=== PATIENT | female | born 1965 | race Caucasian/White ===

== ENCOUNTER 2024-06-03 14:58 | Emergency (ER) | payer BC ==
[2024-06-03 15:06] VITALS: BP 146/93; PULSE 88; RESP 20; TEMP 98
--- NOTE | 2024-06-03 15:17 | ED ---
General Adult HPI - General Chief complaint: Recheck/Abnormal Lab/Rx Stated complaint: Facial weakness Time Seen by Provider: 06/03/24 15:04 Source: patient, RN notes reviewed Mode of arrival: ambulatory Limitations: no limitations - History of Present Illness Initial comments: Patient is a pleasant 59-year-old female present to the emergency department with facial weakness. Onset of symptoms was a few hours ago. Patient has weakness on the left side of her face. Patient has had some mild congestion recently. Patient did have a moderate headache earlier however that has resolved. Headache was not sudden onset and was not severe. Patient does have history of similar headaches previously. Patient also has history of previous Hector's palsy. No earache - Related Data Previous Rx's Medication Instructions Recorded predniSONE [Deltasone] 60 mg PO DAILY #18 tab 06/03/24 valACYclovir HCL [Valtrex] 1 tab PO TID #21 tablet 06/03/24 Allergies Allergy/AdvReac Type Severity Reaction Status Date / Time Iodinated Contrast Media Allergy Rash/Hives Verified 06/03/24 15:06 latex AdvReac Rash/Hives Verified 06/03/24 15:06 Review of Systems ROS Statement: Those systems with pertinent positive or pertinent negative responses have been documented in the HPI. ROS Other: All systems not noted in ROS Statement are negative. Constitutional: Denies: fever Eyes: Denies: eye pain ENT: Denies: ear pain, throat pain Respiratory: Denies: cough Cardiovascular: Denies: chest pain Neurological: Reports: as per HPI. Denies: confusion Past Medical History Past Medical History: Thyroid Disorder Additional [facility] History of Any Multi-Drug Resistant Organisms: None Reported Past Surgical History: Appendectomy, Bariatric Surgery, Cholecystectomy, Orthopedic Surgery, Tubal Ligation Past Psychological History: Anxiety, Depression Smoking Status: Vaper Past Alcohol Use History: Rare Past Drug Use History: None Reported General Exam Limitations: no limitations General appearance: alert, in no apparent distress Head exam: Present: normocephalic Eye exam: Present: PERRL, EOMI ENT exam: Present: normal oropharynx, TM's normal bilaterally Neck exam: Present: normal inspection Respiratory exam: Present: normal lung sounds bilaterally Cardiovascular Exam: Present: regular rate, normal rhythm GI/Abdominal exam: Present: soft. Absent: tenderness Extremities exam: Present: normal inspection Neurological exam: Present: alert, oriented X3 Expanded Speech: Present: fluid speech Cranial nerves: Facial Sensation: Normal, Facial Palsy without Forehead Movement: Abnormal Left (Left weakness that includes forehead and difficulty lifting eyebrow and difficulty closing eye.) Motor strength exam: RUE: 5, LUE: 5, RLE: 5, LLE: 5 Eye Response: (4) open spontaneously Motor Response: (6) obeys commands Verbal Response: (5) oriented Psychiatric exam: Present: normal affect, normal mood Skin exam: Present: normal color Course Vital Signs 06/03/24 15:01 Temperature 98 F Pulse Rate 88 Respiratory 20 Rate Blood Pressure 146/93 O2 Sat by Pulse 99 Oximetry Medical Decision Making - Medical Decision Making Was pt. sent in by a medical professional or institution (Dr. PA, RADAR ENGINEER, urgent care, hospital, or [place] [facility] facility...) When possible be specific @ -No Did you speak to anyone other than the patient for history (EMS, parent, family, police, friend...)? What history was obtained from this source @ -EMS helps provide history of transport Did you review nursing and triage notes (agree or disagree)? Why? @ -I reviewed and agree with nursing and triage notes Were old charts reviewed (outside hosp., previous admission, EMS record, old EKG, old radiological studies, urgent care reports/EKG's, [place] [facility] facility records)? Report findings @ -No old charts were reviewed Differential Diagnosis (chest pain, altered mental status, abdominal pain women, abdominal pain men, vaginal bleeding, weakness, fever, dyspnea, syncope, headache, dizziness, GI bleed, back pain, seizure, CVA, palpatations, mental health, musculoskeletal)? @ -Differential Weakness: Hypoglycemia, shock, sepsis, hyponatremia, anemia, infection, VT, ETOH, adverse medicine reaction, overdose, stroke, this is not meant to be an all-inclusive list. EKG interpreted by me (3pts min.). @ -As above X-rays interpreted by me (1pt min.). @ -None done CT interpreted by me (1pt min.). @ -None done U/S interpreted by me (1pt. min.). @ -None done What testing was considered but not performed or refused? (CT, X-rays, U/S, labs)? Why? @ -Patient has classic Hector's palsy symptoms and therefore CT scan not ordered. Patient does have recent moderate headache that has resolved. Patient states she frequently gets headaches similar to this. Headache was not severe and was not sudden onset. Patient does not feel this is necessary. What meds were considered but not given or refused? Why? @ -None Did you discuss the management of the patient with other professionals (professionals i.e. Dr., PA, RADAR ENGINEER, lab, RT, psych nurse, medical social worker, cheese tester, teacher, traffic maintenance officer, caseworker intake)? Give summary @ -No Was smoking cessation discussed for >3mins.? @ -No Was critical care preformed (if so, how long)? @ -No Were there social determinants of health that impacted care today? How? (Homelessness, low income, unemployed, alcoholism, drug addiction, transportation, low edu. Level, literacy, decrease access to med. care, halfway, rehab)? @ -No Was there de-escalation of care discussed even if they declined (Discuss DNR or withdrawal of care, Hospice)? DNR status @ -No What co-morbidities impacted this encounter? (DM, HTN, Smoking, COPD, CAD, Cancer, CVA, ARF, Chemo, Hep., AIDS, mental health diagnosis, sleep apnea, morbid obesity)? @ -None Was patient admitted / discharged? Hospital course, mention meds given and route, prescriptions, significant lab abnormalities, going to OR and other pertinent info. @ -Patient presents with left-sided facial weakness, no other complaints. Weakness does involve the eyelid and forehead. Patient has symptoms consistent with Hector's palsy. Patient will be started on antivirals and steroids and discharged home Undiagnosed new problem with uncertain prognosis? @ -No Drug Therapy requiring intensive monitoring for toxicity (Heparin, Nitro, Insulin, Cardizem)? @ -No Were any procedures done? @ -No Diagnosis/symptom? @ -Hector's palsy Acute, or Chronic, or Acute on Chronic? @ -Acute Uncomplicated (without systemic symptoms) or Complicated (systemic symptoms)? @ -Default Side effects of treatment? @ -No Exacerbation, Progression, or Severe Exacerbation? @ -No Poses a threat to life or bodily function? How? (Chest pain, USA, VT, pneumonia, PE, COPD, DKA, ARF, appy, cholecystitis, CVA, Diverticulitis, Homicidal, Suicidal, threat to staff... and all critical care pts) @ -No Disposition Clinical Impression: Hector's palsy Disposition: HOME SELF-CARE Condition: Stable Instructions (If sedation given, give patient instructions): Hector Palsy (ED) Additional Instructions: Prescriptions have been sent to pharmacy. Please do follow-up with your primary care physician in the next couple days for recheck. Please use Lacri-Lube or other similar lubricating drops 4 times daily and before bed. Tape your eye shut at bedtime to avoid scratching. Prescriptions: predniSONE [Deltasone] 60 mg PO DAILY #18 tab valACYclovir HCL [Valtrex] 1 tab PO TID #21 tablet Is patient prescribed a controlled substance at d/c from ED?: No Referrals: Kenneth Jacobo MD [STAFF PHYSICIAN] - 1-2 days Time of Disposition: 15:18
[2024-06-03] MEDS: predniSONE 20 MG TAB PO STA (15:24)
[2024-06-03] MEDS: valACYclovir HCL 1,000 MG TABLET PO SCH (15:25)
== END 2024-06-03 15:39 | disposition home or self-care (01) ==
LOC: EC 14:58
DX: G51.0 Bell's palsy (principal); F17.290 Nicotine dependence, other tobacco product, uncomplicated; Z91.041 Radiographic dye allergy status; Z91.040 Latex allergy status
CPT/HCPCS: 99285; J7512